=== PATIENT | female | born 1980 | race African-American/Black ===

== ENCOUNTER 2019-04-20 22:10 | Emergency (ER) | payer OTHER ==
[~2019-04-20] VITALS: Ht 170.2 cm; Wt 86.2 kg
[~2019-04-20 22:10] MED LIST: ALBUTEROL SULF8.5 GM INH; ATIVAN1 MG PO; CYCLOBENZAPRINE10 MG ORAL; CYCLOBENZAPRINE10 MG PO; GABAPENTIN300 MG ORAL; GABAPENTIN300 MG PO; IBUPROFEN600 MG ORAL; NORCO 5-325 TA1 EACH PO; PROMETHAZINE-C118 M1 ORAL; TAMIFLU75 MG ORAL; ZYRTEC-D TABLE1 EACH ORAL
[2019-04-20 22:14] VITALS: BP 120/76
--- NOTE | 2019-04-20 22:20 | NUR ---
ED Nurse Note: Pt ambulated into ED from home CO pain on posterior head, right side of face, with intermittent flushing on right side of face. PT reports being very congested and unable to blow her nose. Pt denies n/v/diarrhea. PT reports history of sinus issues. Pt denies fever. Awaiting ERMD
--- NOTE | 2019-04-20 22:30 | NUR ---
ED Nurse Note: ERMD at bedside
[2019-04-20] MEDS ORDERED: AUGMENTIN 875-1 EAC1 ORAL (22:39)
[2019-04-20] MEDS ORDERED: PSEUDOEPHEDRINE60 MG PO (22:39)
--- NOTE | 2019-04-20 22:40 | Emergency Room Report ---
History of Present Illness General Chief Complaint: Flu Like Symptoms Source: Patient Present Illness HPI This a 38-year-old female with chronic sinus problem. She is taking Flonase for it. She said symptoms been worsening the last 2 to 3 weeks. More congested. Splint is not helping. She has ear pain because of it. She felt fullness in her ear. Worse when she leans forward. For like she is very dizzy when she does that she collecting a pass out. No nausea no vomiting. No fever chills. Has some greenish drainage. Pressure in the face. Allergies: Coded Allergies: No Known Allergies (Unverified , 04/29/12) Patient History Past Medical History: see triage record, old chart reviewed Past Surgical History: none Pertinent Family History: none Social History: Denies: smoking Now: No Immunizations: other Reviewed Nursing Documentation: PMH: Agreed; PSxH: Agreed Nursing Documentation-PMH Hx Neurological Problems: Yes - neuropathy Review of Systems Eye: Denies: eye pain, blurred vision ENT: Reports: ear pain, nose congestion; Denies: throat swelling Respiratory: Denies: cough, shortness of breath Cardiovascular: Denies: chest pain, palpitations Gastrointestinal: Denies: abdominal pain, diarrhea, nausea, vomiting Musculoskeletal: Denies: back pain, joint pain Skin: Denies: rash Neurological: Denies: headache, numbness Endocrine: Denies: increased thirst, increased urine Hematologic/Lymphatic: Denies: easy bruising All Other Systems: negative except mentioned in HPI Physical Exam Vital Signs Date Time Temp Pulse Resp B/P (MAP) Pulse Ox O2 Delivery O2 Flow Rate FiO2 04/20/19 22:14 98.1 90 19 121/78 (92) 99 Room Air Vitals normal Sp02 EP Interpretation: reviewed, normal General Appearance: well appearing, no apparent distress, alert Head: normocephalic, atraumatic Eyes: bilateral eye PERRL, bilateral eye EOMI ENT: hearing grossly normal, normal pharynx, other - Tenderness to the maxillary sinus bilaterally. Bilateral TM with effusion Neck: full range of motion, supple, no meningismus Respiratory: chest non-tender, lungs clear, normal breath sounds Cardiovascular #1: regular rate, rhythm, no murmur Gastrointestinal: normal bowel sounds, non tender, no mass, no organomegaly, no bruit, non-distended Musculoskeletal: back normal, normal range of motion, gait/station normal Psychiatric: mood/affect normal Medical Decision Making Diagnostic Impression: Primary Impression: Sinusitis, acute Qualified Codes: J01.00 - Acute maxillary sinusitis, unspecified ER Course This patient presents with acute sinusitis. No evidence of meningitis. Will discharge home. Last Vital Signs Date Time Temp Pulse Resp B/P (MAP) Pulse Ox O2 Delivery O2 Flow Rate FiO2 04/20/19 22:14 98.1 90 19 121/78 (92) 99 Room Air Status: improved Disposition: HOME, SELF-CARE Condition: Stable Scripts Amoxicillin/Potassium Clav 875-125* (AUGMENTIN 875-125 TABLET*) 1 Each Tablet 1 TAB ORAL TWICE A DAY, #28 TAB Prov: Chung Monterroso MD 04/20/19 Pseudoephedrine Hcl* (SUDAFED*) 60 Mg Tablet 60 MG PO Q6H, #30 TAB Prov: Chung Monterroso MD 04/20/19 Additional Instructions: Continue with your Flonase. Follow-up with your doctor in 7 days for recheck. Take yogurt with probiotic to decrease risk for diarrhea associated with antibiotics. Return if worse. Chung Monterroso MD Apr 20, 2019 22:40
[2019-04-20 22:43] VITALS: BP 116/79
--- NOTE | 2019-04-20 22:43 | NUR ---
ER DISCHARGE NOTE: Patient is cleared to be discharged home per ERMD, pt is aox4, on room air, with stable vital signs. pt was given dc and prescription instructions, pt was able to verbalize understanding, pt id band removed. pt is able to ambulate with steady gait. pt took all belongings.
== END 2019-04-20 22:43 | disposition home or self-care (01) ==
LOC: EMR 22:29
DX: J01.00 Acute maxillary sinusitis, unspecified (principal)
CPT/HCPCS: 99282

== ENCOUNTER 2020-02-15 16:07 | Emergency (ER) | payer OTHER ==
[~2020-02-15] VITALS: Ht 172.7 cm; Wt 86.2 kg
[~2020-02-15 16:07] MED LIST changes: +AUGMENTIN 875-1 EAC1 ORAL; +PSEUDOEPHEDRINE60 MG PO
--- NOTE | 2020-02-15 16:25 | NUR ---
ED Nurse Note: Pt walked into ED from home for flu-like symptoms. Pt has nausea for 2 days, MCWILLIAMS, sore throat, and diarrhea, and feels "like she's hot." She found out someone at work today was COVID (+) and wants to be tested. Pt is alert and orientedx4, ambulatory.
[2020-02-15 16:26] VITALS: BP 140/83
--- NOTE | 2020-02-15 17:09 | Emergency Room Report ---
History of Present Illness General Chief Complaint: Flu Like Symptoms Source: Patient Present Illness HPI 39-year-old female presents to the emergency department complaining of 8 out of 10 severity right ear pain, sore throat, headache x3 days. Patient denies notable fevers or chills. Patient reports she has been taking irts-vjp-ambrjfe pain medications with mild relief of her symptoms. She reports she is up-to-date with vaccinations. She also reports that she had a recent exposure to a person with COVID-19. She denies cough, shortness of breath. Patient does report some nausea but denies vomiting. She denies abdominal pain or tenderness. Patient reports low suspicion of . She denies neck pain/stiffness. She denies changes in her voice. Patient denies dizziness, kezia tophobia, sudden onset of the headache. No other aggravating or relieving factors at this time. Allergies: Coded Allergies: No Known Allergies (Unverified , 04/29/12) COVID-19 Screening Contact w/high risk pt: No Experienced COVID-19 symptoms?: Yes COVID-19 Testing performed DUST SAMPLER: No Patient History Past Medical History: see triage record Past Surgical History: none Now: No Reviewed Nursing Documentation: PMH: Agreed; PSxH: Agreed Nursing Documentation-PMH Past Medical History: No History, Except For Hx Neurological Problems: Yes - neuropathy Review of Systems All Other Systems: negative except mentioned in HPI Physical Exam Vital Signs Date Time Temp Pulse Resp B/P (MAP) Pulse Ox O2 Delivery O2 Flow Rate FiO2 02/15/20 16:12 98.2 106 17 145/85 (105) 98 Room Air 02/15/20 16:26 99 Sp02 EP Interpretation: reviewed, normal General Appearance: no apparent distress, alert, GCS 15, non-toxic Head: normocephalic, atraumatic Eyes: bilateral eye normal inspection, bilateral eye PERRL, bilateral eye other - No photophobia ENT: hearing grossly normal, normal voice, uvula midline, moist mucus membranes, nasal congestion, pharyngeal erythema - Without exudates, other - Right tympanic membrane is erythematous and bulging. No preauricular tenderness or evidence of mastoiditis. Neck: full range of motion, no meningismus, no bony tend Respiratory: chest non-tender, lungs clear, normal breath sounds, no respir atory distress, no accessory muscle use, no wheezing, speaking full sentences Cardiovascular #1: regular rate, rhythm Gastrointestinal: normal bowel sounds, non tender, soft, non-distended, no guarding Musculoskeletal: back normal, normal range of motion, gait/station normal, non- tender Neurologic: alert, motor strength/tone normal, oriented x3, sensory intact, responsive, speech normal Psychiatric: judgement/insight normal Skin: no rash, normal color Lymphatic: no adenopathy Medical Decision Making PA Attestation Dr. Dwyer Is my supervising Physician whom patient management has been discussed with. Diagnostic Impression: Primary Impression: Otitis media Qualified Codes: H66.90 - Otitis media, unspecified, unspecified ear Additional Impression: Close exposure to COVID-19 virus ER Course 39-year-old female presents to the emergency department complaining of 8 out of 10 severity right ear pain, sore throat, headache x3 days. Patient denies notable fevers or chills. Patient reports she has been taking puhj-muz-waqhzgc pain medications with mild relief of her symptoms. She reports she is up-to-date with vaccinations. She also reports that she had a recent exposure to a person with COVID-19. She denies cough, shortness of breath. Patient does report some nausea but denies vomiting. She denies abdominal pain or tenderness. Patient reports low suspicion of . She denies neck pain/stiffness. She denies changes in her voice. Patient denies dizziness, p hotophobia, sudden onset of the headache. No other aggravating or relieving factors at this time. Pt. presents to the ED c/o : sore throat, tonsillar swelling, and nasal congestion x 2 days Ddx considered but are not limited to: pharyngitis, strep, DUST SAMPLER, ludwigs angina, URI, OM/OE, COVID-19 Vital signs: are WNL, pt. is afebrile H&PE are most consistent with: Right Otitis media ORDERS: None required at this time as the diagnosis is clinical ED INTERVENTIONS: none required at this time. Discussed with patient regarding findings of otitis media however there is still the possibility that this could be early infection with COVID-19 due to her exposure. This patient was evaluated in the context of the global COVID-19 pandemic, which necessitated consideration that the patient might be at risk for infection with the SARS-COV-2 virus that causes COVID-19. Institutional protocols and algorithms that pertaining to the evaluation of patients at risk for COVID-19 are in a state of rapid change based on information released by multiple regulatory bodies including the CDC and federal and state organizations. These policies and algorithms were followed during the patient's care in the emergency department DISCHARGE: At this time pt. is stable for d/c to home. Will provide printed patient care instructions, and any necessary prescriptions. Care plan and follow up instructions have been discussed with the patient prior to discharge. Labs Test 02/15/20 16:50 Urine HCG, Qualitative Negative (NEGATIVE) Last Vital Signs Date Time Temp Pulse Resp B/P (MAP) Pulse Ox O2 Delivery O2 Flow Rate FiO2 02/15/20 16:26 98 16 Room Air 99 02/15/20 16:26 98.2 140/83 99 Disposition: HOME, SELF-CARE Condition: Stable Scripts Amoxicillin* (AMOXIL*) 500 Mg Capsule 500 MG ORAL EVERY 8 HOURS for 10 Days, #30 CAP Prov: Shana Raymond 02/15/20 Dicyclomine Hcl* (DICYCLOMINE HCL*) 10 Mg Capsule 10 MG ORAL TID for diarrhea, #9 CAP Prov: Shana Raymond 02/15/20 Pseudoephedrine Hcl* (NEXAFED*) 30 Mg Tablet 30 MG ORAL Q6H PRN for congestion, #30 TAB Prov: Shana Raymond 02/15/20 Acetaminophen* (TYLENOL EXTRA STRENGTH*) 500 Mg Tablet 500 MG ORAL Q8H PRN for Prn Headache/Temp > 101, #30 TAB 0 Refills Prov: Shana Raymond 02/15/20 Patient Instructions: Fever, Adult, [id number], Upper Respiratory Infection, Adult, Ezlb-lb-Abgy Additional Instructions: Take medications as directed. Follow up with a Primary Care Provider in 3-5 days, even if your symptoms have resolved. --Please review list of outpatient non-emergent COVID-19 Testing Facilities. Return sooner to ED if new symptoms occur, or current symptoms become worse. - Please note that this Emergency Department Report was dictated using [employer] technology software, occasionally this can lead to erroneous entry secondary to interpretation by the dictation equipment. Shana Raymond Feb 15, 2020 17:09
[2020-02-15] MEDS ORDERED: NEXAFED30 MG ORAL (17:13)
[2020-02-15] MEDS ORDERED: TYLENOL EXTRA500 MG ORAL (17:13)
[2020-02-15] MEDS ORDERED: DICYCLOMINE HCL10 MG ORAL (17:13)
[2020-02-15] MEDS ORDERED: AMOXICILLIN500 MG ORAL (17:31)
[2020-02-15 17:36] VITALS: BP 127/76
--- NOTE | 2020-02-15 17:36 | NUR ---
ER DISCHARGE NOTE: Patient is cleared to be discharged per ERMD, pt is aox4, on room air, with stable vital signs. pt was given dc and prescription instructions, pt was able to verbalize understanding, pt id band removed. pt is able to ambulate with steady gait. pt took all belongings. Pt educated on prescriptions or f/u.
== END 2020-02-15 17:37 | disposition home or self-care (01) ==
LOC: EMR 16:45
DX: H66.90 Otitis media, unspecified, unspecified ear (principal); Z20.828 Contact with and (suspected) exposure to other viral communicable diseases; G62.9 Polyneuropathy, unspecified
CPT/HCPCS: 81025; 99283